=== PATIENT | male | born 1965 | race Caucasian/White ===

== ENCOUNTER 2019-06-13 17:56 | Emergency (ER) | payer BC, OTHER ==
[2019-06-13 18:20] VITALS: BMI 25.8
--- NOTE | 2019-06-13 18:43 | PDOC ---
Rapid Medical Evaluation Chief Complaint: Respiratory Time Seen by Provider: 06/13/19 18:41 Medical Evaluation: Allergies Allergy/AdvReac Type Severity Reaction Status Date / Time aspirin Allergy Verified 06/13/19 18:19 Vital Signs Temp Pulse Resp BP Pulse Ox 98 F 92 H 18 132/72 98 06/13/19 18:19 06/13/19 18:19 06/13/19 18:19 06/13/19 18:19 06/13/19 18:19 06/13/19 18:42 Pt c/o: chest pain worsened with deep inspiration radiating to back, no hx, travel,or recent sx Pt on brief exam: vss, non reproducible, lcta pt ordered for: ekg, labs, cxr Pt to proceed to the ED Discharge Disposition - Diagnosis Chest pain Qualifiers: Chest pain type: unspecified Qualified Code(s): R07.9 - Chest pain, unspecified - Discharge Dispostion Disposition: HOME - Referrals Referrals: Chencho Smith MD [Staff Physician] - Call tomorrow Hubert Cota [Primary Care Provider] - Daryl Mccurdy MD [Staff Physician] - Call tomorrow - Patient Instructions Printed Discharge Instructions: DI for Chest Pain Additional Instructions: please follow up with a hydraulic jack operator as soon as possible. - Post Discharge Activity Work/School Note: Back to Work
[2019-06-13 19:10] LABS: BASO % 0.3 % (0-2.0); EOS % 0.2 % (0-4.5); HEMATOCRIT 44.9 % (35.4-49); HEMOGLOBIN 15.1 GM/dL (11.7-16.9); LYMPH % 22.9 % (8-40); MCH 31.6 pg (25.7-33.7); MCHC 33.6 g/dl (32.0-35.9); MEAN CELL VOLUME 94.2 fl (80-96); MEAN PLT VOLUME 7.8 fl (7.5-11.1); MONO % 9.9 % (3.8-10.2); NEUT % 66.7 % (42.8-82.8); PLATELET COUNT 268 K/MM3 (134-434); RBC 4.77 M/mm3 (4.00-5.60); RDW 12.9 % (11.9-15.9); WHITE BLOOD COUNT 9.6 K/mm3 (4.0-10.0)
[2019-06-13 19:23] LABS: INR 1.06 (0.83-1.09); PROTHROMBIN TIME (PATIENT) 12.5 SEC (9.7-13.0)
[2019-06-13 19:58] LABS: ALK PHOS 54 U/L (45-117); ANION GAP 7 MMOL/L (8-16); BILIRUBIN,TOTAL 0.8 mg/dL (0.2-1); BLOOD UREA NITROGEN 6.6 mg/dL (7-18); CALCIUM 9.4 mg/dL (8.5-10.1); CHLORIDE 103 mmol/L (98-107); CO2 26 mmol/L (21-32); CREATININE 0.7 mg/dL (0.55-1.3); GLUCOSE,RANDOM 99 mg/dL (74-106); POTASSIUM 4.4 mmol/L (3.5-5.1); SGOT/AST 17 U/L (15-37); SGPT/ALT 25 U/L (13-61); SODIUM 136 mmol/L (136-145); TOT PROT 7.4 g/dl (6.4-8.2)
--- NOTE | 2019-06-13 23:07 | PDOC ---
History of Present Illness - General Chief Complaint: Respiratory Stated Complaint: CHEST PAIN Time Seen by Provider: 06/13/19 18:41 History Source: Patient - History of Present Illness Initial Comments: 06/13/19 23:01 53 year old midsternal chest pain worse with breathing. patient reports that he feels he over did the gym this past weekend. denies SOB, Nausea, vomtiing, dizziness, diaphoresis den[place] recent travel, prolonged sitting PMHX: none 06/13/19 23:10 Past History - Past Medical History Allergies/Adverse Reactions: Allergies Allergy/AdvReac Type Severity Reaction Status Date / Time aspirin Allergy Verified 06/13/19 18:19 Home Medications: Ambulatory Orders NK [No Known Home Medication] 06/13/19 COPD: No - Psycho Social/Smoking Cessation Hx Smoking History: Never smoked Review of Systems - Review of Systems Able to Perform ROS?: Yes Is the patient limited Kyrgyz proficient: No Constitutional: No: Symptoms Reported, See HPI, Chills, Diaphoresis, Fever, Loss of Appetite, Malaise, Night Sweats, Weakness, Weight Stable, Unintentional Wgt. Loss, Unexplained wgt Loss, Other HEENTM: No: Symptoms Reported, See HPI, Eye Pain, Blurred Vision, Tearing, Recent change in vision, Double Vision, Cataracts, Ear Pain, Ocular Prothesis, Ear Discharge, Nose Pain, Nose Congestion, Tinnitus, Nose Bleeding, Hearing Loss , Throat Pain, Throat Swelling, Mouth Pain, Dental Problems, Difficulty Swallowing, Mouth Swelling, Other Respiratory: No: Symptoms reported, See HPI, Cough, Orthopnea, Shortness of Breath, SOB with Exertion, SOB at Rest, Stridor, Wheezing, Productive cough, Hemoptysis, Other Cardiac (ROS): Yes: Chest Pain *Physical Exam - Vital Signs Last Vital Signs Temp Pulse Resp BP Pulse Ox 98 F 92 H 18 132/72 98 06/13/19 18:19 06/13/19 18:19 06/13/19 18:19 06/13/19 18:19 06/13/19 18:19 - Physical Exam General Appearance: Yes: Appropriately Dressed Respiratory/Chest: positive: Lungs Clear, Normal Breath Sounds. negative: Chest Tender Cardiovascular: positive: Regular Rhythm, Regular Rate Gastrointestinal/Abdominal: positive: Normal Bowel Sounds. negative: Tender, Soft Heart Score/ECG Review - History History: Slightly suspicious - Electrocardiogram EKG: Normal - Age Age: 45-65 - Risk Factors Based on the list above the patient has:: No risk factors known - Troponin Troponin: </= normal limit - Score Heart Score - Total: 1 - ECG Intrepretation Rhythm: Regular Rhythm Comment:: 06/13/19 23:09 NSr: ED Treatment Course - LABORATORY CBC & Chemistry Diagram: 06/13/19 18:53 06/13/19 18:53 - ADDITIONAL ORDERS Additional order review: Laboratory Results 06/13/19 06/13/19 18:53 18:53 PT with INR 12.50 INR 1.06 Sodium 136 Potassium 4.4 Chloride 103 Carbon Dioxide 26 Anion Gap 7 L BUN 6.6 L Creatinine 0.7 Est GFR (CKD-EPI)AfAm 124.87 Est GFR (CKD-EPI)NonAf 107.74 Random Glucose 99 Calcium 9.4 Total Bilirubin 0.8 AST 17 ALT 25 Alkaline Phosphatase 54 Creatine Kinase 93 Troponin I < 0.02 Total Protein 7.4 Albumin 4.0 06/13/19 18:53 RBC 4.77 MCV 94.2 MCHC 33.6 RDW 12.9 MPV 7.8 Neutrophils % 66.7 Lymphocytes % 22.9 Monocytes % 9.9 Eosinophils % 0.2 Basophils % 0.3 ED Progress Note - Progress Note Progress Note: 06/13/19 23:04 A: chest pain P: cardiac cbc cmp chest xray ekg Discharge - Discharge Information Problems reviewed: Yes Clinical Impression/Diagnosis: Chest pain Qualifiers: Chest pain type: unspecified Qualified Code(s): R07.9 - Chest pain, unspecified Disposition: HOME - Follow up/Referral Referrals: Hubert Cota [Primary Care Provider] - Daryl Mccurdy MD [Staff Physician] - Call tomorrow Chencho Smith MD [Staff Physician] - Call tomorrow - Patient Discharge Instructions Patient Printed Discharge Instructions: DI for Chest Pain Additional Instructions: please follow up with a agricultural produce packer as soon as possible. - Post Discharge Activity Work/Back to School Note: Back to Work
[2019-06-13 23:35] VITALS: BP 130/76; PULSE 76; TEMP 98
--- NOTE | 2019-06-14 03:36 | PDOC ---
*Physical Exam - Vital Signs Last Vital Signs Temp Pulse Resp BP Pulse Ox 98.0 F 76 19 130/76 100 06/13/19 23:34 06/13/19 23:34 06/13/19 23:34 06/13/19 23:34 06/13/19 23:34 ED Treatment Course - LABORATORY CBC & Chemistry Diagram: 06/13/19 18:53 06/13/19 18:53 - ADDITIONAL ORDERS Additional order review: Laboratory Results 06/13/19 06/13/19 18:53 18:53 PT with INR 12.50 INR 1.06 Sodium 136 Potassium 4.4 Chloride 103 Carbon Dioxide 26 Anion Gap 7 L BUN 6.6 L Creatinine 0.7 Est GFR (CKD-EPI)AfAm 124.87 Est GFR (CKD-EPI)NonAf 107.74 Random Glucose 99 Calcium 9.4 Total Bilirubin 0.8 AST 17 ALT 25 Alkaline Phosphatase 54 Creatine Kinase 93 Troponin I < 0.02 Total Protein 7.4 Albumin 4.0 06/13/19 18:53 RBC 4.77 MCV 94.2 MCHC 33.6 RDW 12.9 MPV 7.8 Neutrophils % 66.7 Lymphocytes % 22.9 Monocytes % 9.9 Eosinophils % 0.2 Basophils % 0.3 Medical Decision Making - Medical Decision Making 06/14/19 03:35 Patient seen by the advanced practice provider under my direct supervision. Ancillary testing reviewed as necessary. I agree with plan as outlined by the advanced practice provider. Discharge - Discharge Information Problems reviewed: Yes Clinical Impression/Diagnosis: Chest pain Qualifiers: Chest pain type: unspecified Qualified Code(s): R07.9 - Chest pain, unspecified Disposition: HOME - Follow up/Referral Referrals: Chencho Smith MD [Staff Physician] - Call tomorrow Hubert Cota [Primary Care Provider] - Daryl Mccurdy MD [Staff Physician] - Call tomorrow - Patient Discharge Instructions Patient Printed Discharge Instructions: DI for Chest Pain Additional Instructions: please follow up with a stringed instrument repairer as soon as possible. - Post Discharge Activity Work/Back to School Note: Back to Work
--- NOTE | 2019-06-14 11:38 | EKG ---
Test Reason : Blood Pressure : / mmHG Vent. Rate : 085 BPM Atrial Rate : 085 BPM P-R Int : 142 ms QRS Dur : 094 ms QT Int : 362 ms P-R-T Axes : 062 061 065 degrees QTc Int : 430 ms NORMAL SINUS RHYTHM NORMAL ECG NO PREVIOUS ECGS AVAILABLE Confirmed by Fredi Shannon MD ([id number]) on 06/14/2019 11:37:59 AM Referred By: Confirmed By:Fredi Shannon MD
== END 2019-06-13 23:35 | disposition home or self-care (01) ==
LOC: JER 17:56
DX: R07.9 Chest pain, unspecified (principal)
CPT/HCPCS: 36415; 71045-TC-FY; 80053; 82550; 84484; 85025; 85610; 93005; 93010; 99282-25